=== PATIENT | male | born 1935 | race Caucasian/White ===

== ENCOUNTER 2017-07-31 14:52 | Inpatient (IN) | payer OTHER ==
[~2017-07-31] VITALS: Ht 167.6 cm; Wt 73.0 kg
--- NOTE | ~2017-07-31 | DS ---
Discharge Summary [facility] [address] [place]. [address] NAME: GIULIANA ORTEGA ADRIAN : 37 STATUS : DIS IN PAT#: [id number] AGE: 82 ADM/REG DATE : 07/31/17 MR#: [id number] REPORT SERV DATE: 08/03/17 DICTATED BY: CHARMAINE PAZ DATE: 08/02/17 REPORT STATUS : Draft TRANSCRIBED BY: MODL DATE: 08/02/17 ADMISSION DATE: 07/31/2017 DISCHARGE DATE: 08/02/2017 REASON FOR ADMISSION: This is an 82-year-old male with history of COPD that presented with worsening shortness of breath, wheezing, cough, and sputum production over the last week. DISCHARGE DIAGNOSES: 1. Acute exacerbation of chronic obstructive pulmonary disease. 2. Hypoxemia, secondary to exacerbation of chronic obstructive pulmonary disease. 3. Chronic diastolic congestive heart failure. 4. Hypertension. 5. Hypothyroid. 6. Chronic pain. HOSPITAL COURSE: 1. Acute exacerbation of COPD. The patient was admitted, placed on Duo-Nebs, bronchodilators, IV steroids, aggressive pulmonary toilet, flutter valve, IV Levaquin and supplemental oxygen relating to the hypoxemia. His oxygen requirements were back down to room air today. We have de-escalated his steroids to p.o. prednisone 40 mg, and his IV antibiotic will be de-escalated to doxycycline 100 mg p.o. b.i.d. He will continue his steroid and his doxycycline through 08/04/2017, and he already has home nebulizer machine and home O2 that he uses at bedtime only, and given that his O2 sats are within normal limits on room air, that should be sufficient to continue. He will need to continue Duo-Nebs, which he has at home 4-6 times a day for the next week and then can wean back to p.r.n. DISCHARGE CONDITION: Stable. DISCHARGE MEDICATIONS: 1. Terazosin 4 mg p.o. daily. 2. Synthroid 88 mcg p.o. daily. 3. Prinivil 10 mg p.o. daily. 4. Zantac 150 mg p.o. b.i.d. 5. Simvastatin 20 mg p.o. at bedtime. 6. Aspirin 81 mg p.o. daily. 7. Garlic 1 tablet p.o. daily. 8. Vitamin D 2000 units p.o. daily. 9. Iron 1 tablet p.o. daily. 10.Combivent inhaled p.o. q.4 hours p.r.n. shortness of breath. 11.Multivitamin one tablet daily. 12.Percocet 7.5/325 one tablet q.4 hours p.r.n. pain. 13.OxyContin 30 mg p.o. b.i.d. 14.Saw palmetto two capsules p.o. b.i.d. 15.Potassium gluconate 595 mg p.o. daily. 16.Albuterol p.r.n. Discharge Summary [address] [address] NAME: GIULIANA ORTEGA ADRIAN : 37 STATUS : DIS IN PAT#: [id number] AGE: 82 ADM/REG DATE : 07/31/17 MR#: [id number] REPORT SERV DATE: 08/03/17 DICTATED BY: CHARMAINE PAZ DATE: 08/02/17 REPORT STATUS : Draft TRANSCRIBED BY: VENICE DATE: 08/02/17 17.Pulmicort 0.5 mg inhaled b.i.d. 18.Duo-Nebs q.6 hours p.r.n. 19.Doxycycline 100 mg p.o. b.i.d. through 08/04/2017. 20.Prednisone 40 mg p.o. daily through 08/04/2017. DISCHARGE PLAN: The patient is discharged home to complete his antibiotic and prednisone regimen and then follow up with his primary care in one to two weeks. TDR/DAVIONL Jonnie Lipscomb APN Charmaine Paz M.D. / [id number] CC: Charmaine Paz M.D.
--- NOTE | ~2017-07-31 | HP ---
History And Physical [address] [address] [place]. [address] NAME: GILUIANA SNELL ADRIAN : 39 STATUS : ADM Moe PAT#: [id number] AGE: 82 ADM/REG DATE : 07/31/17 MR#: [id number] REPORT SERV DATE: 08/01/17 DICTATED BY: KE LOREDO DATE: 07/31/17 REPORT STATUS : Draft TRANSCRIBED BY: MODL DATE: 07/31/17 DATE OF ADMISSION: 07/31/2017 POINT OF ENTRY: [facility] Emergency Department. PRIMARY CARE PHYSICIAN: [facility]. PRIMARY QUOTE CLERK: Devyn Matos M.D., F.C.C.P. CHIEF COMPLAINT: Cough, sputum production, wheezing, and shortness of breath. HISTORY OF PRESENT ILLNESS: Mr. Snell is an 82-year-old gentleman with history of COPD, on 2 liters nocturnal oxygen as well as hypertension, chronic diastolic congestive heart failure, and hypothyroidism who presents here today with a few-week complained of cough, sputum production, wheezing, and shortness of breath. The patient states he was treated for pneumonia in February of this year. Since then, he has been having chronic troubles with his shortness of breath and breathing. The patient states for the past few weeks he has had troubles with productive cough with yellowish sputum with associated shortness of breath as well as wheezing. He denies any fevers, night sweats, or chills. Denies chest pain. Initial evaluation in the emergency department is notable for stable vital signs. He was saturating well on 2 liters by nasal cannula. Labs negative for pneumonia. He was treated with IV steroids and bronchodilators and admitted to the Hospitalist Service. REVIEW OF SYSTEMS: Comprehensive review of systems, otherwise, negative unless listed in the history of present illness. PAST MEDICAL HISTORY: 1. COPD, on 2 liters by nasal cannula nocturnally. 2. Chronic diastolic congestive heart failure. 3. BPH. 4. Hypertension. 5. GERD. 6. Depression. 7. Anxiety. 8. Hypothyroidism. 9. Gout. 10.History of sxg-xmyoudb-rlxoupxzy diabetes mellitus type 2, no longer on medications. 11.Chronic pain, on chronic narcotics. PAST SURGICAL HISTORY: 1. Right hip. History And Physical [place] [address] [place]. [address] NAME: GIULIANA SNELL ADRIAN : 39 STATUS : ADM Moe PAT#: [id number] AGE: 82 ADM/REG DATE : 07/31/17 MR#: [id number] REPORT SERV DATE: 08/01/17 DICTATED BY: KE LOREDO DATE: 07/31/17 REPORT STATUS : Draft TRANSCRIBED BY: VENICE DATE: 07/31/17 2. Appendectomy. 3. Right shoulder. 4. Left knee. 5. Right foot. ALLERGIES: TO PLAVIX. HOME MEDICATIONS: 1. DuoNebs q.i.d. p.r.n. 2. Albuterol two puff inhalation p.r.n. 3. Aspirin 81 mg daily. 4. Pulmicort 0.5 mg b.i.d. p.r.n. 5. Vitamin D 2000 units daily. 6. Combivent q.4 hours p.r.n. 7. Levothyroxine 88 mcg daily. 8. Lisinopril 10 mg daily. 9. Multivitamin one tablet daily. 10.OxyContin 30 mg b.i.d. 11.Percocet 7.5/325 one tablet q.i.d. p.r.n. 12.Potassium gluconate 99 mg daily. 13.Zantac 150 mg b.i.d. 14.Saw palmetto two tablets b.i.d. 15.Simvastatin 20 mg q.h.s. 16.Hytrin 4 mg daily. 17.Garlic qkgk-cnn-qwmsjqo. 18.Iron sgvz-jep-iuxrsij. SOCIAL HISTORY: He denies any tobacco, alcohol, or illicits. Quit smoking about 30 years ago, has about a 20- to 35-aubc-liej smoking history. FAMILY MEDICAL HISTORY: Mother with dementia. Father with peptic ulcer disease. Siblings with lung cancer. LABS AND IMAGIN. White count is 4.2, hemoglobin is 11.5, hematocrit is 35.8, platelet count is 136, and INR 1.0. 2. Sodium is 142, potassium 4.3, chloride 104, carbon dioxide 32, BUN 25, creatinine 0.96, glucose is 92, calcium is 8.9, and magnesium is 2.3. 3. Troponin is negative. BNP 47.9. 4. EKG per my review shows normal sinus rhythm with first-degree AV block. No evidence of any acute ischemia or infarction. 5. ABG; pH is 7.42, pCO2 is 44, PO2 of 58, bicarb is 27, and saturating 91% on room air. 6. Chest x-ray per my review shows no acute cardiopulmonary abnormality, does show flattened diaphragms and hyperinflation consistent with COPD. 7. Per review of [employer] and [employer], he had an echocardiogram done in February 2016 showed ejection fraction of 55% with mild diastolic dysfunction, aortic sclerosis, but no stenosis. History And Physical [address] [address] NAME: GIULIANA SNELL ADRIAN : 39 STATUS : ADM Moe PAT#: [id number] AGE: 82 ADM/REG DATE : 07/31/17 MR#: [id number] REPORT SERV DATE: 08/01/17 DICTATED BY: KE LOREDO DATE: 07/31/17 REPORT STATUS : Draft TRANSCRIBED BY: VENICE DATE: 07/31/17 PHYSICAL EXAMINATION: VITAL SIGNS: Temperature is 97.7 degrees Fahrenheit, pulse is 88, respirations 16, saturating 90% on room air, and blood pressure is 147/73. On recheck, blood pressure 145/97, saturating 97% on 2 liters by nasal cannula, and pulse is in the 80s. GENERAL: The patient is awake, alert, in no acute distress, and resting comfortably in bed. He is a well-developed, well-nourished, elderly male in no distress. HEENT: Atraumatic and normocephalic. Moist mucous membranes. Pupils are equal, round, reactive to light and accommodation. Extraocular eye movements are intact. No scleral icterus. NECK: No jugular venous distention. No carotid bruits. CARDIAC: Regular rate and rhythm. No murmurs or gallops. Normal S1 and S2. LUNGS: On oxygen, but in no distress, does have diffuse inspiratory and expiratory wheezes in all lung johnson, but with good air movement. ABDOMEN: Soft, nontender, and nondistended with good bowel sounds. No rebound, guarding, or rigidity. EXTREMITIES: Warm and perfused. No cyanosis, clubbing, or edema. SKIN: Warm and dry. PSYCH: Affect appropriate. NEURO: Alert and oriented x3. Cranial nerves II through XII are grossly intact. Speech is normal. Gait is not assessed. ASSESSMENT: Mr. Snell is an 82-year-old gentleman who presents with a few-week history of progressive worsening cough, sputum production, shortness of breath, and wheezing, and found evidence of acute chronic obstructive pulmonary disease exacerbation. PROBLEM LIST: 1. Acute COPD exacerbation. 2. Hypoxemia. 3. History of chronic diastolic congestive heart failure. 4. History of hypertension. 5. History of hypothyroidism. PLAN: 1. Acute COPD exacerbation. We will admit the patient to Hospitalist Service, place the patient on steroids, bronchodilators, as well as aggressive pulmonary toilet with incentive spirometry and flutter valve. 2. Hypoxemia. The patient was mildly hypoxemic on room air. He is now on his 2 liters nasal cannula that he typically wears at night. We will continue to wean as tolerated. 3. History of hypertension. Continue the patient's home medications. 4. History of hypothyroidism. Continue the patient's home medications. 5. DVT prophylaxis. Lovenox subcu. 6. Code status. The patient wished to be full code. JCB/MODL History And Physical [address] [address] NAME: GIULIANA SNELL ADRIAN : 39 STATUS : ADM Moe PAT#: [id number] AGE: 82 ADM/REG DATE : 07/31/17 MR#: [id number] REPORT SERV DATE: 08/01/17 DICTATED BY: KE LOREDO DATE: 07/31/17 REPORT STATUS : Draft TRANSCRIBED BY: VENICE DATE: 07/31/17 Ke Loredo MD / [id number] CC: Simba Roa M.D., F.C.C.P.
[~2017-07-31 14:52] MED LIST: *UNABLE1; ADVAIR250 INH; ALBUTEROL; ALBUTEROL NEBULIZER; ALBUTEROL5 INH; ASAB PO; ATROVENTUD INH; BUDESONIDE; CELEXA20 PO; CELEXA40 MG PO; CENTRUM SILVER PO; CLARIT10 PO; COMBIVENT INH; COMBIVENT RESPIM4 GM INH; DUONEB INH; FERRETTS325 MG PO; FLOMAX4 PO; FLONASE NAS; FLOVENT44 INH; GARLIC TABLET PO; GOODY'S BODY P1 EACH PO; L40 PO; LEVAQUIN750 MG PO; LEVOTHYROXIN25 MCG PO; LEVOTHYROXINE PO; MAX25 PO; MIRALAXPKT PO; MULTIPLE VIT PO; NORV10 PO; OXYCOD PO; OXYCONTIN60 MG PO; P1 PO; P10 PO; PERCOCET1 TA4 PO; PRIN20 PO; PROAIR HFA INH; PROVENTSOL INH; PROVHFA INH; PULMICORT; ROXICET1 TAB PO; SAW PALMETT2 PO; SIMVASTATIN; STARLIX60 PO; SYN.025B PO; SYN125 PO; T PO; VITAMIN B-121000 MC1 SL; VITAMIN D31000 UNIT PO; XANAX1 MG PO; ZANTAC25 MG PO; ZANTAC300 MG PO; ZESTORETIC1 TAB PO; ZOCOR PO; ZOCOR40 PO
[2017-07-31 15:43] LABS: BASOPHILS 0.7 %; BASOPHILS ABSOLUTE 0.03 10/3/uL (0.0-0.16); EOSINOPHILS ABSOLUTE 0.21 10/3/uL (0.0-0.53); ER CBC TAT 0 Hrs 07 Mins; HEMATOCRIT 35.8 % (40.0-51.0); HEMOGLOBIN 11.5 g/dL (13.6-17.8); LYMPHOCYTES 27.8 %; LYMPHOCYTES ABSOLUTE 1.17 10/3/uL (0.67-4.30); MANUAL DIFF NO %; MEAN CORPUS HGB CONC 32.1 g/dL (32.0-36.0); MEAN CORPUSCULAR HEMOGLOB 30.7 pg (26.0-34.0); MEAN CORPUSCULAR VOLUME 95.7 fL (80-100); MEAN PLATELET VOLUME 9.4 fL (9.2-13.0); MONOCYTES ABSOLUTE 0.63 10/3/uL (0.21-1.20); NEUTROPHILS 51.5 %; NEUTROPHILS ABSOLUTE 2.17 10/3/uL (2.02-8.40); PLATELET COUNT 136 10/3/uL (150-400); RBC DISTRIBUTION WIDTH 13.6 % (12.0-16.0); RED CELL COUNT 3.74 10/6/uL (4.7-6.1); WHITE BLOOD CELLS 4.2 10/3/uL (4.5-10.5)
[2017-07-31 15:51] LABS: PARTIAL THROMBO TIME 32.5 SEC (22.5-37.2); PROTIME (NOT ORD) 13.3 SEC (12.0-14.5)
[2017-07-31 16:00] LABS: CALCIUM, SERUM 8.9 MG/DL (8.5-10.4); CHEST PAIN PROFILE TAT 0 Hrs 24 Mins; CHLORIDE, SERUM 104 MMOL/L (96-112); CREATININE 0.96 MG/DL (0.70-1.30); GFR AFRICAN AMERICAN 86 ML/MIN (>=60); GFR NON AFRICAN AMERICAN 74 ML/MIN (>=60); GLUCOSE, SERUM 92 MG/DL (60-99); POTASSIUM, SERUM 4.3 MMOL/L (3.5-5.3); SODIUM, SERUM 142 MMOL/L (135-148); TROPONIN I <0.02 NG/ML (<0.05)
[2017-07-31 16:01] LABS: BUN (BLOOD UREA NITROGEN) 25 MG/DL (6-23); CO2 (CARBON DIOXIDE) 32 MMOL/L (24-34)
[2017-07-31 19:26] LABS: ALLENS TEST Pos; BE (BASE EXCESS) 2.5 MEQ/L (0 +/- 2.5); CARBOXYHEMOGLOBIN 1.7 % (0-3); HCO3 (ACTUAL BICARBONATE) 27.5 MEQ/L (23-27); HEMOBLOGIN CONTENT 12.1 G/DL (14-18); INSTRUMENT SERIAL # 8087; METHEMOGLOBIN 0.3 % (0-3); O2 CONTENT 15.2 VOL% (18-24); OPERATOR ID 33449; PCO2 (CO2 TENSION) 44 MMHG (35-45); PO2 (O2 TENSION) 58 MMHG (79-93); SAMPLE Arterial; pH 7.42 (7.37-7.43)
[2017-07-31] MEDS ORDERED: ANTIBIOTIC (20:42)
[2017-07-31] MEDS ORDERED: SYN88 PO (20:43)
[2017-07-31] MEDS ORDERED: RX EAR DROPS OT (20:43)
[2017-07-31] MEDS ORDERED: HYT2 PO (20:43)
[2017-07-31] MEDS ORDERED: PRIN10 PO (20:44)
[2017-07-31] MEDS ORDERED: ZOCOR20 PO (20:44)
[2017-07-31] MEDS ORDERED: ZANTAC 150 PO (20:44)
[2017-07-31] MEDS ORDERED: ASAB PO (20:44)
[2017-07-31] MEDS ORDERED: GARLIC PO (20:45)
[2017-07-31] MEDS ORDERED: IRON PO (20:45)
[2017-07-31] MEDS ORDERED: VITAMIN D2000 UNIT PO (20:45)
[2017-07-31] MEDS ORDERED: PERCOCET 7.5/321 TAB PO (20:46)
[2017-07-31] MEDS ORDERED: COMBIVENT RESPIM4 GM PO (20:46)
[2017-07-31] MEDS ORDERED: CENTRUM PO (20:46)
[2017-07-31] MEDS ORDERED: POTASSIUM GLUCO99 MG PO (20:47)
[2017-07-31] MEDS ORDERED: PROAIR HFA INH (20:47)
[2017-07-31] MEDS ORDERED: OXYCONTIN30 MG PO (20:47)
[2017-07-31] MEDS ORDERED: SAW PALMETT2 PO (20:47)
[2017-07-31] MEDS ORDERED: PULRESP.5 INH (20:48)
[2017-07-31] MEDS ORDERED: DUONEB INH (20:49)
[2017-08-01 06:19] LABS: BASOPHILS 0 %; EOSINOPHILS 0 %; HEMATOCRIT 35.5 % (40.0-51.0); HEMOGLOBIN 11.5 g/dL (13.6-17.8); LYMPHOCYTES 14.3 %; LYMPHOCYTES ABSOLUTE 0.43 10/3/uL (0.67-4.30); MEAN CORPUS HGB CONC 32.4 g/dL (32.0-36.0); MEAN CORPUSCULAR HEMOGLOB 30.6 pg (26.0-34.0); MEAN CORPUSCULAR VOLUME 94.4 fL (80-100); MEAN PLATELET VOLUME 9.7 fL (9.2-13.0); MONOCYTES ABSOLUTE 0.03 10/3/uL (0.21-1.20); NEUTROPHILS 84.7 %; NEUTROPHILS ABSOLUTE 2.54 10/3/uL (2.02-8.40); PLATELET COUNT 153 10/3/uL (150-400); RED CELL COUNT 3.76 10/6/uL (4.7-6.1)
[2017-08-01 06:20] LABS: MANUAL DIFF NO %
[2017-08-01 06:30] LABS: BUN (BLOOD UREA NITROGEN) 26 MG/DL (6-23); CALCIUM, SERUM 9.1 MG/DL (8.5-10.4); CHLORIDE, SERUM 101 MMOL/L (96-112); CO2 (CARBON DIOXIDE) 25 MMOL/L (24-34); CREATININE 1.01 MG/DL (0.70-1.30); GFR AFRICAN AMERICAN 81 ML/MIN (>=60); GFR NON AFRICAN AMERICAN 70 ML/MIN (>=60); GLUCOSE, SERUM 190 MG/DL (60-99); POTASSIUM, SERUM 4.1 MMOL/L (3.5-5.3); SODIUM, SERUM 137 MMOL/L (135-148)
[2017-08-02] MEDS ORDERED: MONODOX100 MG PO (09:50)
[2017-08-02] MEDS ORDERED: P20 PO (09:51)
== END 2017-08-02 12:17 | disposition home or self-care (01) | DRG 191 ==
LOC: ER 14:52 → 7NO 21:40
PROVIDERS: Emergency Medicine; Hospitalist; Internal Medicine
DX: J44.1 Chronic obstructive pulmonary disease with (acute) exacerbation (principal); I50.32 Chronic diastolic (congestive) heart failure; I11.0 Hypertensive heart disease with heart failure; R09.02 Hypoxemia; E03.9 Hypothyroidism, unspecified; G89.29 Other chronic pain; Z79.82 Long term (current) use of aspirin; K21.9 Gastro-esophageal reflux disease without esophagitis; F41.9 Anxiety disorder, unspecified
CPT/HCPCS: 36600; 71020; 80048; 82805; 83735; 83880; 84484; 85025; 85610; 85730; 87070; 87205; 93005; 94640; 94667; 94668; 96374; 99285; A9270-GY; J1956; J2920; J2930